=== PATIENT | female | born 1990 | race Caucasian/White ===

== ENCOUNTER 2017-11-30 15:15 | Inpatient (IN) | payer OTHER ==
[~2017-11-30] VITALS: Ht 160 cm; Wt 2.7 kg
[2017-12-08] MEDS ORDERED: PRENATAL TABLE1 EACH PO (15:28)
== END 2017-12-17 19:11 | disposition home or self-care (01) | DRG 766 ==
LOC: LDR 12-08 13:58 → O/R 12-09 16:45 → LDR 12-09 21:34 → OB/GYN 12-10 11:51
PROVIDERS: Obstetrics & Gynecology
PROC: 3E0P7VZ Introduction of Hormone into Female Reproductive, Via Natural or Artificial Opening (ICD-10-PCS; 2017-12-09)
PROC: 3E033VJ Introduction of Other Hormone into Peripheral Vein, Percutaneous Approach (ICD-10-PCS; 2017-12-09)
PROC: 4A033R1 Measurement of Arterial Saturation, Peripheral, Percutaneous Approach (ICD-10-PCS; 2017-12-09)
PROC: 4A1HXCZ Monitoring of Products of Conception, Cardiac Rate, External Approach (ICD-10-PCS; 2017-12-09)
PROC: 10D00Z1 Extraction of Products of Conception, Low, Open Approach (ICD-10-PCS; principal; 2017-12-09 14:30)
DX: O61.0 Failed medical induction of labor (principal); O14.14 Severe pre-eclampsia complicating childbirth; Z3A.38 38 weeks gestation of pregnancy; Z37.0 Single live birth